=== PATIENT | male | born 1965 | race American Indian/Alaskan Native ===

== ENCOUNTER 2018-05-03 04:28 | Inpatient (IN) | payer SELFPAY ==
[2018-05-03] MEDS ORDERED: NACL 0.9% 1000 ML 1,000 ML ONE ×2 (04:45→04:46)
[2018-05-03] MEDS ORDERED: XYLOCAINE 2% INFILTRATI ONE (04:54)
[2018-05-03] MEDS ORDERED: XYLOCAINE 1%/ EPI 1:100,000 INFILTRATI ONE (04:55)
[2018-05-03] MEDS ORDERED: NACL 0.9% 500 ML IR ONE (04:58)
[2018-05-03] MEDS ORDERED: NACL 0.9% IR ONE (05:00)
[2018-05-03] MEDS ORDERED: ASPIRIN PO ONE (05:01)
[2018-05-03] MEDS ORDERED: NACL 0.9% 1000 ML 1,000 ML IV ONE ×3 (05:01→05:03)
[2018-05-03] MEDS ORDERED: BOOSTRIX IM ONE (05:03)
[2018-05-03] MEDS ORDERED: ceFAZolin 2 GM in NACL 0.9% 100 ML IV ONE (05:03)
[2018-05-03 05:15] LABS: Hematocrit 42.6 % (35.5-45.6); Hemoglobin 14.8 gm/dl (11.8-15.2); Mean Corpuscular HGB Conc 35 % (32-34); Mean Corpuscular Volume 97 fl (84-94); Platelet Count 162 K/mm3 (140-440)
[2018-05-03 05:22] LABS: INR 0.88 (0.87-1.13)
[2018-05-03 05:23] LABS: Partial Thromboplastin Time 23.9 Sec. (24.2-36.6)
[2018-05-03 05:29] LABS: Alanine Aminotransferase 25 units/L (7-56); BUN/Creatinine Ratio 7; Blood Urea Nitrogen 6 mg/dL (9-20); Calcium 9.1 mg/dL (8.4-10.2); Hemolysis Index 9
--- NOTE | 2018-05-03 05:49 | XRay Report ---
FINAL REPORT EXAM: XR CHEST 1V AP HISTORY: Chest Pain TECHNIQUE: A portable semi-upright view of the chest was submitted. FINDINGS: The heart size and mediastinum appear normal. The lungs are clear. Pleural fluid is not seen. The bon es soft tissues do not show any acute changes. IMPRESSION: No acute cardiopulmonary process.
--- NOTE | 2018-05-03 06:02 | Emergency Department Report ---
<LYLE JOSEPH - Last Filed: 05/03/18 06:03> ED Chest Pain HPI - General Chief Complaint: Wound/Laceration Stated Complaint: LEFT HAND LACERATION Time Seen by Provider: 05/03/18 05:01 - Related Data Home Medications Medication Instructions Recorded Confirmed Last Taken No Known Home Medications [No 05/03/18 05/03/18 Unknown Reported Home Medications] Allergies Allergy/AdvReac Type Severity Reaction Status Date / Time No Known Allergies Allergy Verified 05/03/18 04:51 ED Past Medical Hx - Medications Home Medications: Home Medications Medication Instructions Recorded Confirmed Last Taken Type No Known Home Medications [No 05/03/18 05/03/18 Unknown History Reported Home Medications] - Laceration /Wound Repair Left Arm Wound Location: upper extremity (left forearm) Wound Length (cm): 4 Wound's Depth, Shape: into muscle, linear Wound Explored: clean Irrigated w/ Saline (ccs): 125 Betadine Prep?: Yes Anesthesia: Lidocaine w/ Epi Volume Anesthetic (ccs): 3 Wound Debrided: minimal Wound Repaired With: sutures Suture Size/Type: 4:0, proline Number of Sutures: 6 Layer Closure?: No Sterile Dressing Applied?: Yes Progress: Patient tolerated procedure well. ED Medical Decision Making - Lab Data Result diagrams: 05/03/18 Unknown 05/03/18 Unknown ED Disposition Clinical Impression: Chest pain Qualifiers: Chest pain type: unspecified Qualified Code(s): R07.9 - Chest pain, unspecified Laceration of left forearm Qualifiers: Encounter type: initial encounter Qualified Code(s): S51.812A - Laceration without foreign body of left forearm, initial encounter Disposition: OP ADMIT IP TO THIS HOSP Condition: Stable <YESSI PEARCE - Last Filed: 05/04/18 08:08> ED Chest Pain HPI - General Source: patient Mode of arrival: Ambulatory Limitations: No Limitations - History of Present Illness MD Complaint: chest pain -: Sudden Onset: during rest Pain Location: substernal Pain Radiation: none Severity: mild Severity scale (0 -10): 2 Quality: heaviness Consistency: constant Improves With: nothing Worsens With: nothing re: diaphoresis Treatments Prior to Arrival: none Aspirin use within the Past 7 Days: (0) No - Related Data On Oral Contraceptives: No Heart Score - HEART Score History: Slightly suspicious EKG: Non-specific Age: 45-65 Risk factors: 1-2 risk factors Troponin: < normal limit HEART Score: 3 - Critical Actions Critical Actions: 0-3 pts:0.9-1.7%risk of adverse cardiac event.Candidate for discharge ED Review of Systems ROS: Stated complaint: LEFT HAND LACERATION Other details as noted in HPI Comment: All other systems reviewed and negative Constitutional: denies: chills, fever Eyes: denies: eye pain, eye discharge, vision change ENT: denies: ear pain, throat pain Respiratory: denies: cough, shortness of breath, wheezing Cardiovascular: chest pain. denies: palpitations Endocrine: no symptoms reported Gastrointestinal: denies: abdominal pain, nausea, diarrhea Genitourinary: denies: urgency, dysuria Musculoskeletal: denies: back pain, joint swelling, arthralgia Skin: other (left forearm laceration.). denies: rash, lesions Neurological: denies: headache, weakness, paresthesias Psychiatric: denies: anxiety, depression Hematological/Lymphatic: denies: easy bleeding, easy bruising ED Past Medical Hx - Past Medical History Previous Medical History?: No - Surgical History Past Surgical History?: Yes Additional Surgical History: Shoulder and ankle - Social History Smoking Status: Current Every Day Smoker Substance Use Type: Alcohol, Cocaine ED Physical Exam - General Limitations: No Limitations General appearance: alert, in no apparent distress - Head Head exam: Present: atraumatic, normocephalic - Eye Eye exam: Present: normal appearance, PERRL, EOMI Pupils: Present: normal accommodation - ENT ENT exam: Present: normal exam, normal orophraynx, mucous membranes moist - Neck Neck exam: Present: normal inspection, full ROM - Respiratory Respiratory exam: Present: normal lung sounds bilaterally. Absent: respiratory distress - Cardiovascular Cardiovascular Exam: Present: regular rate, normal rhythm. Absent: systolic m urmur, diastolic murmur, rubs, gallop - GI/Abdominal GI/Abdominal exam: Present: soft, normal bowel sounds - Rectal Rectal exam: Present: deferred - Extremities Exam Extremities exam: Present: normal inspection - Back Exam Back exam: Present: normal inspection - Neurological Exam Neurological exam: Present: alert, oriented X3, CN II-XII intact - Psychiatric Psychiatric exam: Present: normal affect, normal mood - Skin Skin exam: Present: warm, dry, intact, normal color, diaphoretic. Absent: rash ED Course Vital Signs 05/03/18 05/03/18 05/03/18 04:35 04:42 04:44 Temperature 98 F 98.2 F Pulse Rate 79 50 L Respiratory 12 16 Rate Blood Pressure 70/43 Blood Pressure 113/65 [Right] O2 Sat by Pulse 100 99 94 Oximetry 05/03/18 05/03/18 05/03/18 05:00 06:01 07:00 Temperature Pulse Rate 72 70 73 Respiratory 15 14 16 Rate Blood Pressure 114/75 141/84 139/88 Blood Pressure [Right] O2 Sat by Pulse 100 100 96 Oximetry 05/03/18 05/03/18 08:01 09:00 Temperature Pulse Rate 83 74 Respiratory 13 17 Rate Blood Pressure 150/92 144/87 Blood Pressure [Right] O2 Sat by Pulse 100 100 Oximetry - Reevaluation(s) Reevaluation #1: 05/03/18 06:42 Patient care was transitioned to Dr. Kasie Venegas at shift change to follow up on the CT angio of the chest results prior to admission to the hospitalist. NAPOLEON score - Napoleon Score Age > 65: (0) No Aspirin use within the Past 7 Days: (0) No 3 or more CAD Risk Factors: (0) No 2 or more Angina events in past 24 hrs: (0) No Known CAD with more than 50% Stenosis: (0) No Elevated Cardiac Markers: (0) No ST Deviation Greater than 0.5mm: (0) No NAPOLEON Score: 0 ED Medical Decision Making - Lab Data Result diagrams: 05/03/18 Unknown 05/03/18 Unknown Lab Results 05/03/18 05/03/18 05/03/18 Range/Units 04:44 Unknown Unknown WBC 11.9 H (4.5-11.0) K/mm3 RBC 4.40 (3.65-5.03) M/mm3 Hgb 14.8 (11.8-15.2) gm/dl Hct 42.6 (35.5-45.6) % MCV 97 H (84-94) fl MCH 34 H (28-32) pg MCHC 35 H (32-34) % RDW 13.0 L (13.2-15.2) % Plt Count 162 (140-440) K/mm3 Add Manual Diff Complete Total Counted 100 Seg Neuts % (Manual) 77.0 H (40.0-70.0) % Band Neutrophils % 4.0 % Lymphocytes % (Manual) 4.0 L (13.4-35.0) % Reactive Lymphs % (Man) 0 % Monocytes % (Manual) 13.0 H (0.0-7.3) % Eosinophils % (Manual) 0 (0.0-4.3) % Basophils % (Manual) 0 (0.0-1.8) % Metamyelocytes % 2.0 % Myelocytes % 0 % Promyelocytes % 0 % Blast Cells % 0 % Nucleated RBC % Not Reportable Seg Neutrophils # Man 9.2 H (1.8-7.7) K/mm3 Band Neutrophils # 0.5 K/mm3 Lymphocytes # (Manual) 0.5 L (1.2-5.4) K/mm3 Abs React Lymphs (Man) 0.0 K/mm3 Monocytes # (Manual) 1.5 H (0.0-0.8) K/mm3 Eosinophils # (Manual) 0.0 (0.0-0.4) K/mm3 Basophils # (Manual) 0.0 (0.0-0.1) K/mm3 Metamyelocytes # 0.2 K/mm3 Myelocytes # 0.0 K/mm3 Promyelocytes # 0.0 K/mm3 Blast Cells # 0.0 K/mm3 WBC Morphology Not Reportable Hypersegmented Neuts Not Reportable Hyposegmented Neuts Not Reportable Hypogranular Neuts Not Reportable Smudge Cells Not Reportable Toxic Granulation Not Reportable Toxic Vacuolation Not Reportable Dohle Bodies Not Reportable Pelger-Huet Anomaly Not Reportable Yoana Rods Not Reportable Platelet Estimate Appears normal Clumped Platelets Not Reportable Plt Clumps, EDTA Not Reportable Large Platelets Not Reportable Giant Platelets Not Reportable Platelet Satelliting Not Reportable Plt Morphology Comment Not Reportable RBC Morphology Normal Dimorphic RBCs Not Reportable Polychromasia Not Reportable Hypochromasia Not Reportable Poikilocytosis Not Reportable Anisocytosis Not Reportable Microcytosis Not Reportable Macrocytosis Not Reportable Spherocytes Not Reportable Pappenheimer Bodies Not Reportable Sickle Cells Not Reportable Target Cells Not Reportable Tear Drop Cells Not Reportable Ovalocytes Not Reportable Helmet Cells Not Reportable [place] Bodies Not Reportable [place] Rings Not Reportable [place] Cells Not Reportable Bite Cells Not Reportable Crenated Cell Not Reportable Elliptocytes Not Reportable Acanthocytes (Spur) Not Reportable Rouleaux Not Reportable Hemoglobin C Crystals Not Reportable Schistocytes Not Reportable Malaria parasites Not Reportable Abdullahi Bodies Not Reportable Hem Pathologist Commnt No PT 12.3 (12.2-14.9) Sec. INR 0.88 (0.87-1.13) APTT 23.9 L (24.2-36.6) Sec. D-Dimer 832.90 H (0-234) ng/mlDDU Sodium (137-145) mmol/L Potassium (3.6-5.0) mmol/L Chloride (98-107) mmol/L Carbon Dioxide (22-30) mmol/L Anion Gap mmol/L BUN (9-20) mg/dL Creatinine (0.8-1.5) mg/dL Estimated GFR ml/min BUN/Creatinine Ratio % Glucose (75-100) mg/dL POC Glucose 172 H (70-105) Calcium (8.4-10.2) mg/dL Total Bilirubin (0.1-1.2) mg/dL AST (5-40) units/L ALT (7-56) units/L Alkaline Phosphatase (35-129) units/L Troponin T (0.00-0.029) ng/mL Total Protein (6.3-8.2) g/dL Albumin (3.9-5) g/dL Albumin/Globulin Ratio % 05/03/18 Range/Units Unknown WBC (4.5-11.0) K/mm3 RBC (3.65-5.03) M/mm3 Hgb (11.8-15.2) gm/dl Hct (35.5-45.6) % MCV (84-94) fl MCH (28-32) pg MCHC (32-34) % RDW (13.2-15.2) % Plt Count (140-440) K/mm3 Add Manual Diff Total Counted Seg Neuts % (Manual) (40.0-70.0) % Band Neutrophils % % Lymphocytes % (Manual) (13.4-35.0) % Reactive Lymphs % (Man) % Monocytes % (Manual) (0.0-7.3) % Eosinophils % (Manual) (0.0-4.3) % Basophils % (Manual) (0.0-1.8) % Metamyelocytes % % Myelocytes % % Promyelocytes % % Blast Cells % % Nucleated RBC % Seg Neutrophils # Man (1.8-7.7) K/mm3 Band Neutrophils # K/mm3 Lymphocytes # (Manual) (1.2-5.4) K/mm3 Abs React Lymphs (Man) K/mm3 Monocytes # (Manual) (0.0-0.8) K/mm3 Eosinophils # (Manual) (0.0-0.4) K/mm3 Basophils # (Manual) (0.0-0.1) K/mm3 Metamyelocytes # K/mm3 Myelocytes # K/mm3 Promyelocytes # K/mm3 Blast Cells # K/mm3 WBC Morphology Hypersegmented Neuts Hyposegmented Neuts Hypogranular Neuts Smudge Cells Toxic Granulation Toxic Vacuolation Dohle Bodies Pelger-Huet Anomaly Yoana Rods Platelet Estimate Clumped Platelets Plt Clumps, EDTA Large Platelets Giant Platelets Platelet Satelliting Plt Morphology Comment RBC Morphology Dimorphic RBCs Polychromasia Hypochromasia Poikilocytosis Anisocytosis Microcytosis Macrocytosis Spherocytes Pappenheimer Bodies Sickle Cells Target Cells Tear Drop Cells Ovalocytes Helmet Cells Kay[place] Bodies [place] Rings Sonia Cells Bite Cells Crenated Cell Elliptocytes Acanthocytes (Spur) Rouleaux Hemoglobin C Crystals Schistocytes Malaria parasites Abdullahi Bodies Hem Pathologist Commnt PT (12.2-14.9) Sec. INR (0.87-1.13) APTT (24.2-36.6) Sec. D-Dimer (0-234) ng/mlDDU Sodium 142 (137-145) mmol/L Potassium 3.7 (3.6-5.0) mmol/L Chloride 100.5 (98-107) mmol/L Carbon Dioxide 26 (22-30) mmol/L Anion Gap 19 mmol/L BUN 6 L (9-20) mg/dL Creatinine 0.9 (0.8-1.5) mg/dL Estimated GFR > 60 ml/min BUN/Creatinine Ratio 7 % Glucose 114 H (75-100) mg/dL POC Glucose (70-105) Calcium 9.1 (8.4-10.2) mg/dL Total Bilirubin 0.80 (0.1-1.2) mg/dL AST 35 (5-40) units/L ALT 25 (7-56) units/L Alkaline Phosphatase 60 (35-129) units/L Troponin T < 0.010 (0.00-0.029) ng/mL Total Protein 7.7 (6.3-8.2) g/dL Albumin 4.0 (3.9-5) g/dL Albumin/Globulin Ratio 1.1 % - EKG Data -: EKG Interpreted by [place] EKG shows normal: sinus rhythm Rate: normal (74) - EKG Data When compared to previous EKG there are: previous EKG unavailable Interpretation: nonspecific ST-T wave lakshmi 05/03/18 06:31 Prolonged QT, No STEMI. - Radiology Data Radiology results: report reviewed, image reviewed CXR is negative. - Medical Decision Making Cocaine Chest Pain. Left Forearm Laceration. Critical care attestation.: If time is entered above; I have spent that time in minutes in the direct care of this critically ill patient, excluding procedure time. ED Disposition Is pt being admited?: Yes Does the pt Need Aspirin: Yes
[2018-05-03 06:12] LABS: Band Neutrophils # (Manual) 0.5 K/mm3; Basophils % (Manual) 0 % (0.0-1.8); Eosinophils % (Manual) 0 % (0.0-4.3); RBC Morphology Normal; Total Cells Counted 100
[2018-05-03] MEDS ORDERED: ZOFRAN IV ONE (06:34)
[2018-05-03] MEDS ORDERED: MORPHINE IV ONE (06:34)
[2018-05-03 06:49] LABS: Color,Urine Yellow (Yellow)
[2018-05-03 06:50] LABS: Bilirubin,Urine NEG (Negative); Blood,Urine NEG (Negative); Hyaline Casts,Urine 1 /LPF; Mucus,Urine FEW /HPF; Protein,Urine <15 mg/dL mg/dL (Negative)
[2018-05-03 06:57] LABS: Amphetamine Screen,Urine PRESUMPTIVE NEGATIVE; Benzodiazepines Screen,Urine PRESUMPTIVE NEGATIVE; Cannabinoid Screen,Urine PRESUMPTIVE NEGATIVE; Methadone Screen,Urine PRESUMPTIVE NEGATIVE; Opiate Screen,Urine PRESUMPTIVE NEGATIVE
--- NOTE | 2018-05-03 06:58 | Cat Scan Report ---
FINAL REPORT EXAM: CT ANGIO CHEST HISTORY: elevated d-dimer with chest pain TECHNIQUE: A CT angiogram was performed following the intravenous injection of 100 cc of Omnipaque 3 50. Rotational, sagittal, and coronal MIP reconstructions were reviewed. FINDINGS: There is no evidence of pulmonary embolus or aortic dissection. The thoracic aorta is normal in calib er. The heart size is normal. Pericardial fluid is not seen. There is no evidence of adenopathy. The lungs reveal very mild bibasilar atelectatic changes. There is interstitial prominence in both lungs. Very mild interstitial edema cannot be excluded. Pleural fluid is not seen. In the upper abdomen the adrenal glands appear normal. The skeletal structures do not show any acute changes. IMPRESSION: No evidence of pulmonary embolus, aortic dissection, or localized infiltrates. Bibasilar atelectatic changes, right side worse than left side with mild interstitial prominence. Mil d interstitial edema cannot be excluded in this patient.
[2018-05-03 07:23] LABS: Cocaine Screen,Urine PRESUMPTIVE POSITIVE
--- NOTE | 2018-05-03 08:55 | XRay Report ---
FINAL REPORT EXAM: XRAY FOREARM HISTORY: Laceration to left forearm COMPARISONS: None. FINDINGS: Obliquely oriented AP and lateral views left forearm No radiodense foreign body, fracture, gross malalignment or deformity identified. IMPRESSION: No radiodense foreign body or fracture involving the left forearm is identified.
[2018-05-03] MEDS ORDERED: ROBITUSSIN PO PRN (11:00)
[2018-05-03] MEDS: HABITROL TD SCH (11:36)
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
[2018-05-03] MEDS ORDERED: ZOFRAN IV PRN ×2 (13:20→13:25)
[2018-05-03] MEDS ORDERED: HALDOL IV PRN (13:24)
[2018-05-03] MEDS ORDERED: ATIVAN IV PRN ×3 (13:24)
[2018-05-03] MEDS: VITAMIN B-1 PO SCH (14:28)
[2018-05-03] MEDS: NACL 0.9% 1000 ML 1,000 ML IV SCH (14:28)
[2018-05-03] MEDS ORDERED: NORCO 5/325 PO PRN (17:17)
[2018-05-03] MEDS ORDERED: MORPHINE IV PRN (17:17)
[2018-05-04] MEDS ORDERED: LEXISCAN IV ONE ×2 (08:22→08:41)
[2018-05-04] MEDS: VITAMIN B-1 PO SCH (10:35)
[2018-05-04] MEDS: PROTONIX PO SCH (10:35)
[2018-05-04] MEDS: FOLVITE PO SCH (10:35)
[2018-05-04] MEDS: HABITROL TD SCH (10:36)
[2018-05-04] MEDS: HEPARIN SUB-Q SCH ×2 (13:00→21:52)
[2018-05-04] MEDS: NACL 0.9% 1000 ML 1,000 ML IV SCH (13:18)
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
--- NOTE | 2018-05-04 19:49 | Vascular Lab Report ---
FINAL REPORT EXAM: VL CAROTID DUPLEX BILAT HISTORY: syncope TECHNIQUE: Grayscale, color flow and Doppler waveform imaging of the cervical carotid arteries was p erformed. Comparison: None FINDINGS: There demonstration of normal antegrade flow in the cervical carotid arteries bilaterally. There is no demonstration of plaque formation. Peak systolic velocity in the right internal carotid artery is 73 centimeters/second and in the left internal carotid artery is 69 centimeters/second. Peak systolic ICA/CCA ratio on the right is 0.7 and on the left is 0.6 IMPRESSION: 1. No ultrasound evidence of cervical carotid artery stenosis.
--- NOTE | 2018-05-04 19:57 | Treadmill Report ---
NUCLEAR PERFUSION SCAN REFERRING PHYSICIAN: Waldemar Ruiz MD PROTOCOL: The patient was brought to the stress lab in a postoperative state, given 10 mCi of technetium 99m at rest. The patient underwent rest imaging. The patient underwent Lexiscan stress test. At peak stress, the patient was given 26 mCi of technetium 99m. Shortly thereafter, the patient underwent stress imaging. Raw imaging reveals mild GI artifact. No significant motion artifact, technically difficult study. Overall, there does not appear to be significant fixed or reversible perfusion defect suggestive of prior infarction or ischemia. Gated wall motion reveals low normal systolic performance, calculated ejection fraction of 48%. No TID. CONCLUSIONS: 1. This is a technically very difficult study due to questionable motion artifact, but grossly no evidence of ischemia or prior infarction. 2. Low normal systolic performance, calculated ejection fraction of 48% without TID. JOB# [id number] GREGORIA/CLARICE
[2018-05-05 05:33] VITALS: BP 161/103
[2018-05-05] MEDS: PROTONIX PO SCH (09:27)
[2018-05-05] MEDS: HEPARIN SUB-Q SCH (09:28)
[2018-05-05] MEDS: VITAMIN B-1 PO SCH (09:28)
[2018-05-05] MEDS: FOLVITE PO SCH (09:28)
[2018-05-05] MEDS: HABITROL TD SCH (09:29)
== END 2018-05-05 12:01 | disposition home or self-care (01) | DRG 579 ==
LOC: ED 04:28 → 4A 07:13
PROVIDERS: ADMIT Internal Medicine; ATTEND Internal Medicine
PROC: 0KQ80ZZ Repair Left Upper Arm Muscle, Open Approach (ICD-10-PCS; principal; 2018-05-03)
DX: S51.812A Laceration without foreign body of left forearm, initial encounter (principal); G92 Toxic encephalopathy; R07.9 Chest pain, unspecified; F17.200 Nicotine dependence, unspecified, uncomplicated; F10.10 Alcohol abuse, uncomplicated; R55 Syncope and collapse; F14.10 Cocaine abuse, uncomplicated; Z71.89 Other specified counseling; Z71.6 Tobacco abuse counseling; Y93.89 Activity, other specified; Y92.89 Other specified places as the place of occurrence of the external cause; Y99.8 Other external cause status
CPT/HCPCS: 36415; 71045; 71275; 78452; 80053; 80307; 81001; 82962; 84484; 85007; 85025; 85379; 85610; 85730; 90471; 90715; 93005; 93010; 93017; 93306; 93880; 96361; 96365; 96375; G0378; A9502; J0690; J1644; J2270; J2405; J2785; J7030; Q9967